=== PATIENT | male | born 1990 | race Hispanic/Latino ===

== ENCOUNTER 2022-08-18 01:15 | Emergency (ER) | payer OTHER ==
[~2022-08-18] VITALS: Ht 165.1 cm; Wt 86.2 kg
[2022-08-18 01:33] VITALS: BP 128/77
== END 2022-08-18 01:47 | disposition home or self-care (01) ==
LOC: EDH 01:15
DX: R07.89 Other chest pain (principal)
CPT/HCPCS: 93005